=== PATIENT | female | born 2000 | race Caucasian/White ===

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

== ENCOUNTER → 2019-04-07 | Outpatient (CLI) | payer BC ==
[~2019-04-07] MED LIST changes: +ZOFRAN ODT4 MG PO
== END ==
LOC: LAB 09:19
DX: J02.9 Acute pharyngitis, unspecified (principal)

== ENCOUNTER → 2022-11-10 | Outpatient (CLI) | payer BC | LOC: LAB 18:40 | DX: J02.9 Acute pharyngitis, unspecified (principal) ==